=== PATIENT | female | born 1940 | race African-American/Black ===

== ENCOUNTER 2016-09-27 03:54 | Inpatient (IN) | payer OTHER ==
[~2016-09-27] VITALS: Ht 154.9 cm; Wt 89.4 kg
[~2016-09-27 03:54] MED LIST: ASPIRIN EC325 M2 PO; COLACE100 M1 PO; DILAUDID2 M1 PO; ECOTRIN81 MG PO; MELOXICAM15 MG PO; MIRALAX17 G1 PO; MS CONTIN15 M2 PO; MULTIVITAMIN1 TAB PO; NATURAL IRON65 MG PO; OMEPRAZOLE D/R20 MG PO; OMEPRAZOLE20 M2 PO; RW; ST. JOSEPH ASPI81 M1 PO; TRAMADOL HCL50 M1 PO; TRAMADOL50 MG PO; TYLENOL325 M1 PO
--- NOTE | 2016-09-27 11:25 | Admission Core Measures ---
Admission Meds I reviewed the following Meds: Current Medications Sig/Domingo Start time Last Medication Dose Stop Time Status Admin Acetaminophen 975 MG ONCE 09/27 0000 NR (Tylenol) 09/27 2358 Cefazolin Sodium 2,000 MG ONCE 09/27 0000 NR (Kefzol-Ancef Inj) 09/27 2358 Omeprazole 20 MG DAILY PRN 09/27 1100 UNVr (Prilosec) Oxycodone HCl 10 MG ONCE 09/27 0000 NR (Roxicodone) 09/27 2358 Acute Coronary Syndrome Inclusion Criteria ACS Diagnosis No Inpatient Core Measures LDL Reminder: If No, please order W/I first 24hr of stay Congestive Heart Failure Inclusion Criteria CHF Diagnosis No Cerebrovascular accident Inclusion Criteria CVA/TIA Diagnosis No Inpatient Core Measures Bedside Swallow Eval Reminder: If BSE failed, place ST order Antithrombotic Reminder: Order Antithrombotic Medication by end of day 2 Antithrombotic Reminder: Document Reason Antithrombotic Not ordered by end of day 2 AFIB/Flutter Reminder: If Present, add to problem list AFIB/Flutter Reminder: Order Anticoag Medication for pts with AFIB/Flutter Atherosclerosis Reminder: If Present, add to problem list LDL Reminder: If No, please order W/I first 24hr of stay PT Order Reminder: If No, please order Venous thromboembolism Inpatient Core Measures VTE Risk Factors: Age > 40, Surgery [facility] prophylaxis d/t No contraindications No VTE Pharm Prophylaxis d/t No contraindications Inclusion Criteria - Per Current guidelines, there needs to be overlap - treatment for the first 5 days of Warfarin therapy. - Parenteral Anticoagulation (IV or SC) needs to be - given along with Warfarin therapy. VTE Diagnosis No VTE Type NONE VTE Confirmed by (Test) NONE Problem List As ranked by this Provider includes Assessment & Plan 1. Unilateral primary osteoarthritis, left hip HOME MEDS Home Med List Acetaminophen (Tylenol) 325 MG TABLET 2 TAB PO TID PAIN (Reported) Aspirin ([place] Aspirin) 81 MG TABLET.DR 1 TAB PO D HEART HEALTH ( Reported) Meloxicam 15 MG TAB 1 TAB PO DAILY ANTI-INFLAMMATORY (Reported) Omeprazole 20 MG CAPSULE.DR 1 CAP PO DAILY PRN REFLUX (Reported) Tramadol HCl 50 MG TABLET 1 TAB PO BIDP PRN PAIN (Reported)
[2016-09-27] MEDS ORDERED: COLACE100 M1 PO (11:27)
[2016-09-27] MEDS ORDERED: ASPIRIN EC325 M2 PO (11:27)
[2016-09-27] MEDS ORDERED: MIRALAX17 G1 PO (11:27)
[2016-09-27] MEDS ORDERED: DILAUDID2 M1 PO (11:27)
--- NOTE | 2016-09-27 11:31 | Patient Discharge Instructions ---
Discharge Instructions General Discharge Information You were seen/treated for: Left hip pain related to unilateral primary osteoarthritis You had these procedures: Left total hip replacement Watch for these problems: Increasing pain despite the use of pain medication. Increasing redness, warmth or swelling. Drainage of any type from incision. Inability to bear weight on operative leg. Persistent nausea and vomiting. Fever greater than 101.5 degrees. Do not soak the wound: Yes No bath, but you may shower: Yes Other wound care: Please keep wound clean and dry. No ointments or lotions of any type on or near incision at any time. No exceptions. Your dressing will be changed by your nurse on the second day after your surgery. Daily dry dressing changes are recommended each day thereafter. Do not soak your wound in a bath at any time until otherwise indicated by Dr. Lund. You may shower, please dry wound immediately after shower with a clean towel. Special Instructions: Aspirin: You are taking this medication to help prevent the development of blood clots. Please take with food to protect your stomach lining. Please take as directed. Constipation: Pain medication can be very constipating. Dr. Lund has recommended that you take Colace and miralax each day. You may discontinue this medication if you develop loose stool or diarrhea. If you wish to continue this medication, it is available over the counter. If you are unable to move your bowels after several days, if you are unable to pass gas and are developing bloating, nausea, or vomiting as a result, please contact your doctor. Diet Continue normal diet: Yes Recommended Diet: Regular Activity Full Activity/No Limits: No Activity Self Limited: Yes Pounds, do NOT lift more than: 10 Activity Limited to: Weight bear as tolerated Acute Coronary Syndrome Inclusion Criteria At DC or during hospital stay patient has or had the following: ACS DIAGNOSIS No Discharge Core Measures Meds if any: Prescribed or Continued at Discharge Meds if any: NOT Prescribed or Continued at Discharge Congestive Heart Failure Inclusion Criteria At DC or during hospital stay patient has or had the following: CHF DIAGNOSIS No Discharge Core Measures Meds if any: Prescribed or Continued at Discharge Meds if any: NOT Prescribed or Continued at Discharge Cerebrovascular accident Inclusion Criteria At DC or during hospital stay patient has or had the following: CVA/TIA Diagnosis No Discharge Core Measures Meds if any: Prescribed or Continued at Discharge Meds if any: NOT Prescribed or Continued at Discharge Venous thromboembolism Inclusion Criteria VTE Diagnosis No VTE Type NONE VTE Confirmed by (Test) NONE Discharge Core Measures - Per Current guidelines, there needs to be overlap - treatment for the first 5 days of Warfarin therapy. - If discharged on Warfarin prior to 5 days of - overlap therapy, the patient will need to be - assessed for post discharge needs including - *Post discharge parental anticoagulation - *Warfarin and/or parental anticoagulation education - *Follow up date to check INR post discharge At least 5 days overlap therapy as Inpatient No Meds if any: Prescribed or Continued at Discharge Note: Overlap Therapy is Warfarin and Anticoagulant Meds if any: NOT Prescribed or Continued at Discharge
--- NOTE | 2016-09-27 11:34 | Surgical Discharge Summary ---
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 Daughter What is Your Primary Language? Maltese Review of Systems: See H&P Hospital Course Course Attending Physician: MOISÉS PICKERING MD Primary Care Physician: YEE PARADA,[facility] Course: Patient was admitted to the hospital for an elective total joint replacement. The procedure was tolerated well and the patient was transferred to a general surgical floor. Diet was advanced and tolerated and the patient voided spontaneously. The patient was evaluated and treated by physical therapy. At the time of hospital discharge, the [facility] vital signs were stable and within normal limits, neurovascular status was intact, and pain was controlled with the use of oral pain medications. Allergies: Coded Allergies: No Known Allergies (07/07/15) Disposition Summary Disposition Principal Diagnosis: Left hip unilateral primary osteoarthritis Additional Diagnosis: None Discharge Disposition: home health services Discharge Instructions General Discharge Information Code Status: Full Code Patient's Diet: Regular, advance as tolerated Patient's Activity: WBAT Follow-Up Instructions/Appts: Follow up with Dr. Pickering in 6 weeks from date of surgery. Please call his office to arrange and/or confirm this appointment. Medications at Discharge Discharge Medications: Stop taking the following medications: Meloxicam (Meloxicam) 15 MG TAB ORAL DAILY Acetaminophen (Tylenol) 325 MG TABLET ORAL THREE TIMES DAILY Tramadol HCl (Tramadol HCl) 50 MG TABLET ORAL 2 x Daily as needed as needed for PAIN Aspirin ([place] Aspirin) 81 MG TABLET.DR DANG Every Day Continue taking these medications: Omeprazole (Omeprazole) 20 MG CAPSULE. 1 Capsule ORAL DAILY as needed for REFLUX Comments: NOT GIVEN IN HOSPITAL Start taking the following new medications: Aspirin (Ecotrin*) 325 MG TABLET. 1 Tablet ORAL TWICE DAILY Qty = 60 No Refills Comments: Last Taken:09/29/16 Time:09:50 AM Docusate Sodium (Colace) 100 MG CAPSULE 1 Capsule ORAL TWICE DAILY Qty = 14 No Refills Instructions: DISCONTINUE USE IF YOU DEVELOP LOOSE STOOL OR DIARRHEA Comments: Last Taken:09/29/16 Time:09:50 AM Polyethylene Glycol 3350 (Miralax) 17 GRAM POWD.PACK 1 Packet ORAL DAILY Qty = 7 No Refills Instructions: dissolve in water, DISCONTINUE USE IF YOU DEVELOP LOOSE STOOL OR DIARRHEA Comments: Last Taken:09/29/16 Time:09:50 AM Hydromorphone HCl (Dilaudid) 2 MG TABLET 1-2 Tablet ORAL EVERY 4-6 HOURS as needed for PAIN Qty = 36 No Refills Comments: Last Taken:09/29/16 Time:09:50 AM
--- NOTE | 2016-09-27 13:26 | RADIOLOGY REPORT ---
EXAMINATION: XR HIP, LEFT CLINICAL INFORMATION: Status post hip replacement. COMPARISON: None TECHNIQUE: Two views of the left hip. FINDINGS: Left total hip arthroplasty demonstrate usual position and alignment. No evidence of acute prosthetic fracture. Normal articulation of the arthroplasty components. Postsurgical changes with soft tissue gas noted. IMPRESSION: Left total hip arthroplasty with usual position and alignment.
[2016-09-27 13:46] VITALS: BP 120/60
--- NOTE | 2016-09-27 14:42 | PN- Orthopedic ---
Subjective Subjective: POST-OP NOTE: Reports pain controlled. Out of bed to chair. No dizziness. No shortness of breath. No chest pains. Tolerated food. No nausea. Due to void later today. Objective Vital Signs and I&Os Vital Signs Date Time Temp Pulse Resp B/P B/P Pulse O2 O2 Flow FiO2 Mean Ox Delivery Rate 09/27 1346 94.5 56 20 120/60 94 Room Air Intake & Output 09/27 1600 09/27 0800 09/27 0000 09/26 1600 09/26 0800 09/26 0000 Intake Total Output Total Balance Patient 197 lb Weight Physical Exam: General - alert & oriented x 3. out of bed to chair. no acute distress. Lungs - clear bilaterally. no w/r/r. Cardiac - s1s2. reg. Abdomen - soft. nontender. Extremities - warm bilaterally. no c/c/e. left thigh dressing c/d/i. no hematoma. no drains. nvi. calves soft and nontender b/l. athrombics in place. Current Medications: Current Medications Sig/Domingo Start time Last Medication Dose Route Stop Time Status Admin Acetaminophen 650 MG Q4P PRN 09/27 1330 AC PO Acetaminophen 0 .STK-MED ONE 09/27 0824 DC PO Acetaminophen 975 MG ONCE 09/27 0000 DC PO 09/27 2359 Aspirin 325 MG BID 09/270 AC PO Cefazolin Sodium 2 GM IQ8 09/27 1600 AC N/A 1 UNIT IV 09/28 1559 Cefazolin Sodium 2,000 MG ONCE 09/27 0000 DC IV 09/27 2359 Dextrose/Sodium 1,000 ML .[id number] 09/27 1330 AC Chloride IV Docusate Sodium 100 MG BID 09/27 2200 AC PO Hydromorphone HCl 2 MG Q4P PRN 09/27 1330 AC PO Hydromorphone HCl 4 MG Q4P PRN 09/27 1330 AC PO Ketorolac 15 MG Q8P PRN 09/27 1330 AC Tromethamine IV 09/30 1321 Morphine Sulfate 2 MG Q2P PRN 09/27 1330 AC IV Omeprazole 20 MG DAILY PRN 09/27 1330 AC PO Omeprazole 20 MG DAILY PRN 09/27 1100 DC PO Ondansetron HCl 4 MG Q6P PRN 09/27 1330 AC IV Oxycodone HCl 0 .STK-MED ONE 09/27 0824 DC PO Oxycodone HCl 10 MG ONCE 09/27 0000 DC PO 09/27 2359 Polyethylene Glycol 17 GM DAILY 09/28 1000 AC PO Promethazine HCl 12.5 MG Q6P PRN 09/27 1330 AC IV 10/04 1114 Tranexamic Acid 2,000 MG .STK-MED ONE 09/27 0640 DC IV 09/27 0641 Assessment/Plan Assessment/Plan This 75 year old female is POD#0 s/p left total hip replacement, anterior approach for unilateral primary osteoarthritis advance diet as tolerated ok to d/c iv fluids after she voids pain control as ordered asa bid cynthia-operative ancef PT eval f/u am labs d/c planning will d/w Core Measures/Miscellaneous Venous Thromboembolism VTE Risk Factors: Age > 40, Surgery VTE Contraindications: No Contraindications VTE Diagnosis: No VTE Type: NONE VTE Confirmed by (Test): NONE Beta Vincent Is Beta Vincent a Home Med? No Antibiotics Is Patient on Antibiotics? Yes If Yes: prophylaxis
--- NOTE | 2016-09-27 14:51 | NUR ---
PT ARRIVED TO FLOOR VIA STRETCHER, AO, RA, TRANSFERED TO BED, NO C/O PAIN, VSS, L HIP DSG INTACT, REFUSED CREMATORY ATTENDANT, ALPS APPLIED, IV PATENT W/ FLUIDS RUNNING, +CMS, +PEDAL PULSES, ORIENTED TO ROOM AND CALL LIGHT, ADMISSION COMPLETE, MEAL ORDERED. DAUGHTER AT BEDSIDE, CALL TONY WITHIN REACH.
--- NOTE | 2016-09-27 15:26 | Operative Report ---
Operative/Inv Procedure Report Surgery Date: 09/27/16 Name of Procedure: Left total hip replacement Pre-Operative Diagnosis: Primary left hip DJD Post-Operative Diagnosis: Same Estimated Blood Loss: 250 Surgeon/Morning Show [employer]scast Producer: RAHEEL PARADA,MOISÉS Figueroa Anesthesia: block Operative/Procedure Note Note: Description of Procedure: The patient was taken to the operating room and positively identified. After induction of spinal anesthesia and administration of appropriate pre-operative antibiotics, the patient was positioned supine on the operating room table and all bony prominences were well padded. After performing a surgical timeout, the left lower extremity was prepped and draped in the usual sterile fashion. A direct anterior approach was made to the left hip. The incision was carried sharply through superficial soft tissues to the level of the fascia. Meticulous hemostasis was maintained with Bovie electocautery. The fascia over the tensor fascia deann muscle was opened sharply and the interval between the TFL and the sartorius was entered bluntly taking care to stay lateral to the lateral femoral cutaneous nerve. Retractors were placed around the femoral neck and the pericapsular fat was identified. The ascending branches of the lateral femoral circumflex vessels were identified and carefully coagulated. The pericapsular fat and anterior capsule were then resected. A napkin ring osteotomy was performed and the femoral head was removed without difficulty. Attention was then turned to the acetabulum. After appropriate placement of retractors, the acetabulum was exposed. Soft tissue was cleaned from the acetabular margin and notch. Overhanging osteophytes were removed and the teardrop was exposed. The acetabulum was then sequentially reamed to accept a 54 mm Howard Tritanium hemispherical solid back shell. This was impacted into place in the appropriate position and fitted with a 36 mm Trident X3 zero degree polyethylene insert. Attention was then turned to the femur. After performing the appropriate ligament releases, the proximal femur was exposed. It was then sequentially broached to accept a size 2 Howard accolade 2 stem. This was trialed for leg length and stability. The trial component was removed and the final component was impacted into place. The trunnion was carefully cleaned and fit with a 36 mm, +0 Biolox delta ceramic femoral head. The hip was reduced and put through a full range of motion and found to be stable. The articular space was then irrigated with sterile saline. The periarticular soft tissues were infilitrated with Marcaine. The fascial layer was closed with interrupted #1 vicryl suture and the skin was re-approximated with interrupted 2 -0 vicryl. The skin was closed with a running 3-0 V-Lock suture. Steri-strips and a sterile dressing were applied. The patient was awakened and taken to the recovery room in satisfactory condition.
[2016-09-27 16:01] VITALS: BP 114/76
[2016-09-27 17:30] VITALS: BP 114/70
[2016-09-27 19:39] VITALS: BP 114/72
[2016-09-27 23:37] VITALS: BP 102/60
[2016-09-28 04:22] VITALS: BP 108/70
[2016-09-28 07:55] LABS: ABSOLUTE BASOPHIL COUNT 0 /CUMM (0.0-0.2); ABSOLUTE EOSINOPHIL COUNT 0 /CUMM (0.0-0.7); ABSOLUTE GRANULOCYTE CT 8.1 /CUMM (1.4-6.5); ABSOLUTE LYMPH COUNT 1.1 /CUMM (1.2-3.4); ABSOLUTE MONOCYTE COUNT 0.7 /CUMM (0.10-0.60); BASOPHIL % 0.4 % (0.0-2.0); EOSINOPHIL % 0 % (0-5); GRANULOCYTE % 82.1 % (42.2-75.2); HEMATOCRIT 29.7 % (37-47); MEAN CORPUSCULAR HGB CONC 32.5 G/DL (33.0-37.0); MEAN CORPUSCULAR VOLUME 89.4 FL (81.0-99.0); MEAN PLATELET VOLUME 9.8 FL (7.4-10.4); PLATELET COUNT 173 /CUMM (130-400); RBC DISTRIBUTION WIDTH 15.4 % (11.5-14.5); RED BLOOD CELL CT 3.33 /CUMM (4.20-5.40); WHITE BLOOD CELL COUNT 9.9 /CUMM (4.8-10.8)
--- NOTE | 2016-09-28 08:21 | PN- Orthopedic ---
Subjective Subjective: Pt states she was hurting last night, but received Dilaudid PO with relief She states that she is staying in hospital till tomorrow and that was pre arranged. Ambulated to bathroom Objective Vital Signs and I&Os Vital Signs Date Time Temp Pulse Resp B/P B/P Pulse O2 O2 Flow FiO2 Mean Ox Delivery Rate 09/28 0422 98.1 68 18 108/70 96 Room Air 09/27 2337 98.2 72 18 102/60 95 Room Air 09/27 1939 96.0 73 20 114/72 95 Room Air 09/27 1730 97.8 79 20 114/70 94 Room Air 09/27 1601 97.5 68 20 114/76 93 Room Air 09/27 1346 94.5 56 20 120/60 94 Room Air Intake & Output 09/28 1600 09/28 0800 09/28 0000 09/27 1600 09/27 0800 09/27 0000 Intake Total 480 315 Output Total Balance 480 315 Intake, IV 75 Intake, Oral 480 240 Number 0 Bowel Movements Patient 197 lb Weight Weight Reported by Patient Measurement Method Alert, oriented, appropriate Lungs clear, decreased at bases COR regular Abdomen benign R hip dressing clean, dry, intact.Foot warm to touch, palpable distal pulse, no calf pain. Neurovascular check intact, gross hip motion intact. Assessment/Plan Assessment/Plan s/p L Hip Artholasty for DJD POD#1 Stable hemodynamics Pt. tolerating diet PT eval. yesterday appreciated, plan for d/c home with home PT. Plan for increasing mobility before goes home. Pain control adequate with current regimen. Core Measures/Miscellaneous Venous Thromboembolism VTE Risk Factors: Age > 40, Surgery VTE Contraindications: No Contraindications VTE Diagnosis: No VTE Type: NONE VTE Confirmed by (Test): NONE Beta Vincent Is Beta Vincent a Home Med? No Antibiotics Is Patient on Antibiotics? Yes If Yes: prophylaxis
[2016-09-28 14:35] VITALS: BP 104/60
--- NOTE | 2016-09-28 22:20 | NUR ---
BP 100/60. PT C/O PAIN PER SURGICAL PA START WITH TORADOL TO MANAGE PAIN.
[2016-09-28 22:22] VITALS: BP 100/60
[2016-09-29 06:04] VITALS: BP 120/72
--- NOTE | 2016-09-29 07:49 | PN- Orthopedic ---
Subjective Subjective: No acute overnight events reported. Pain is under adequate management with po pain medication. Review of systems reveals no chest pain, shortness of breath and difficulty breathing. No reports of nausea and vomitting. Has been voiding spontaneously without difficulty. No bowel movement yet but has passed flatus. Has been ambulating. Cleared for discharge to home with home health services by physical therapy yesterday. Objective Vital Signs and I&Os Vital Signs Date Time Temp Pulse Resp B/P B/P Pulse O2 O2 Flow FiO2 Mean Ox Delivery Rate 09/29 0604 98.1 86 20 120/72 96 Room Air 09/28 2222 99.2 81 20 100/60 95 Room Air 09/28 2000 Room Air 09/28 1435 98.3 82 20 104/60 93 Room Air 09/28 1045 Room Air Room Air Intake & Output 09/29 0800 09/29 0000 09/28 1600 09/28 0800 09/28 0000 09/27 1600 Intake Total 120 850 480 315 Output Total 600 Balance 120 250 480 315 Intake, IV 130 75 Intake, Oral 120 720 480 240 Number 0 Bowel Movements Output, Urine 600 Patient 197 lb Weight Weight Reported by Patient Measurement Method Physical Exam: General: Alert and oriented x3, no acute distress Cardiac: RRR, s1s2 Pulm: CTA bialterally ABD: Soft, non-tender, non-distended Extremities: Moves all extremities, distal sensation intact, skin warm and well perfused. No peripheral edema. Bilateral calves soft and non-tender. Surgical site: Dressing changed, wound clean and dry, skin edges well approximated, no surrounding erythema. Thigh compartment soft. Clean dry dressing reapplied. Assessment/Plan Assessment/Plan This is a 75 year old female, POD 2, s/p L thr. Doing well. -Continue current pain regimen -Continue oob, wbat -Plan for discharge to home with home health services today -Will d/w Dr. Lund Core Measures/Miscellaneous Venous Thromboembolism VTE Risk Factors: Age > 40, Surgery VTE Contraindications: No Contraindications VTE Diagnosis: No VTE Type: NONE VTE Confirmed by (Test): NONE Beta Vincent Is Beta Vincent a Home Med? No Antibiotics Is Patient on Antibiotics? Yes If Yes: prophylaxis
== END 2016-09-29 11:05 | disposition home health service (06) | DRG 470 ==
LOC: SDA 03:54 → 2NA 03:54 → ENRESERV 12:15 → ENTRNSPT 13:05 → EDTRNSPTSTS 13:07 → 2NA 13:15 → CMPTRNSPT 13:19 → ENPENDDIS 09-29 08:08 → 2NA 09-29 11:05
PROVIDERS: Nurse Practitioner; ADMIT Orthopaedic Surgery
PROC: 0SRB0JZ Replacement of Left Hip Joint with Synthetic Substitute, Open Approach (ICD-10-PCS; principal; 2016-09-27)
DX: M16.12 Unilateral primary osteoarthritis, left hip (principal); D64.9 Anemia, unspecified; E78.2 Mixed hyperlipidemia; Z86.711 Personal history of pulmonary embolism; Z85.3 Personal history of malignant neoplasm of breast; M25.752 Osteophyte, left hip; K21.9 Gastro-esophageal reflux disease without esophagitis
CPT/HCPCS: 2NASP; 73502-LT; 82436; 97110-GO; 97116-GO; 97161-GP; 97530-GO; C9399; J0131; J0690; J0735; J2405; J2550; J7042